=== PATIENT | male | born 1990 | race Caucasian/White ===

== ENCOUNTER 2018-02-23 08:06 | Emergency (ER) | payer OTHER, SELFPAY ==
[2018-02-23 08:07] VITALS: BP 146/103; PULSE 97; RESP 16; TEMP 36.3; O2SAT 99; BMI 39.9
--- NOTE | 2018-02-23 08:20 | ED.VISSUMM ---
- ER Visit Summary Date of Service: 02/23/18 Chief Complaint: Right thigh redness and swelling History of Present Illness: The patient is a 27 M who presents with redness and swelling to his right thigh that began yesterday. Patient states he got a B12 shot in his thigh 4 days ago. Patient noted some redness and swelling yesterday but states that became worse today. Patient denies any fevers or chills. Patient describes his pain as aching. Patient states the pain is worse with movement and ambulation. Patient denies any paresthesias or weakness. Patient denies any lower leg pain. Physical Examination: Vital signs are stable. Patient is afebrile. Patient has no acute distress. Skin is warm dry. There is erythema and warmth over the anterior aspect of the right thigh. There is no abscess formation noted. There is full range of motion of the lower extremities bilaterally. Neurovascular exam is intact. Heart was regular rate and rhythm. Lungs are clear and equal bilaterally. Abdomen is soft nontender. Oral mucosa is pink and moist. The remaining physical exam is within normal limits. Test Results: CBC and basic metabolic profile were obtained were within normal limits. Emergency Department Course and Treatment: Patient was given a dose of Ancef here. Patient was given a prescription for Keflex. Patient was instructed to follow-up with his primary care physician in 5-7 days. Patient understood and was agreeable with the plan. All questions were answered. Disposition: Discharged home Impression: Right thigh cellulitis This note was generated with [email or web address] dictation software. It may contain incorrect words, spelling, and punctuation that were not noted in review of the chart prior to signing ED Disposition - Plan for ED Patient: Disposition: Home or Assisted Living Chief Complaint: Allergic Reaction Diagnosis: Cellulitis of right thigh Instructions: ED Infec Skin Cellulitis Prescriptions: Cephalexin [Keflex] 500 mg PO Q6 #40 cap Referrals: Onelia Yun NP-C [Primary Care Provider] -
[2018-02-23] MEDS: Cefazolin 1 GM/50 ML BAG IV (08:33)
[2018-02-23 08:50] LABS: Anion Gap 7 (5-15); BUN 11 mg/dL (7-18); BUN/Creat Ratio 8.1 RATIO (10-20); Calcium,Total 8.8 mg/dL (8.5-10.1); Chloride 103 mmol/L (98-107); Creatinine, Serum 1.35 mg/dL (0.70-1.30); EST Glomerular Filtration Rate 68 mL/min (>60); Est Glom Filt Rate - Afr Amer 82 mL/min (>60); Glucose 97 mg/dL (74-106); Potassium 4.2 mmol/L (3.5-5.1); Sodium Level 139 mmol/L (136-145)
[2018-02-23 09:15] LABS: Absolute Lymphocyte Count 1.25 X10^3/ul (0.83-4.51); Absolute Neutrophil Count 8.5 X10^3/uL (2.0-7.7); Basophil# 0.03 X10^3/uL; Basophil% 0.3 % (0-1); Eosinophil# 0.04 X10^3/uL; Eosinophils% 0.4 % (0-5); Hematocrit 48.4 % (40-54); Hemoglobin 16.5 g/dl (13.0-16.5); Lymphocyte # 1.25 X10^3/ul (4.0); Lymphocyte % 11.7 % (19-41); Mean Corp Hgb Conc 34.1 g/gl (32-36); Mean Corpuscular Hgb 29.9 pg (27.0-32.0); Mean Corpuscular Volume 87.8 fL (80-94); Mean Platelet Vol. 10.7 fl (6.2-12.0); Monocyte% 7.5 % (0-10); Neutrophil # 8.53 X10^3/uL (2.7-7.7); Neutrophil % 79.8 % (47-70); Platelet Count 220 K/mm3 (150-450); RBC Distribution Width CV 12.8 % (11.6-14.6); RBC Distribution Width SD 41.2 fl (35.1-43.9); Red Blood Count 5.51 M/mm3 (4.6-6.2); White Blood Count 10.7 K/mm3 (4.4-11.0)
[2018-02-23 09:16] LABS: Differential Indicated SCAN CRITERIA MET; POSITIVE COUNT YES; POSITIVE DIFFERENTIAL NO; POSITIVE MORPHOLOGY NO
[2018-02-23 09:36] VITALS: BP 108/69; PULSE 57; RESP 15; O2SAT 98
== END 2018-02-23 09:37 | disposition home or self-care (01) ==
PROVIDERS: Emergency Provider Emergency Medicine; Family Provider Nurse Practitioner; PCP Nurse Practitioner
DX: L03.115 Cellulitis of right lower limb (principal); B96.89 Other specified bacterial agents as the cause of diseases classified elsewhere
CPT/HCPCS: 80048; 85025; 96360; 99284; J7030